=== PATIENT | male | born 1990 | race Caucasian/White ===

== ENCOUNTER 2022-12-01 11:21 | Emergency (ER) | payer MEDICAID ==
[~2022-12-01] VITALS: Ht 172.7 cm; Wt 83.9 kg
[2022-12-01 11:33] VITALS: BP 137/82; PULSE 93; RESP 16; TEMP 97.2; O2SAT 99
[2022-12-01] MEDS ORDERED: DOXY-487 PO (12:10)
[2022-12-01] MEDS ORDERED: [UNRECOGNIZED DRUG - CODE] TP (12:10)
[2022-12-01] MEDS ORDERED: cefTRIAXone 500 MG in LIDOCAINE MPF 1% 1 ML IM ONE (12:10)
[2022-12-01] MEDS ORDERED: PALI6TER PO (12:10)
[2022-12-01] MEDS ORDERED: cefTRIAXone 500 MG VIAL ONE (12:14)
[2022-12-01] MEDS ORDERED: LIDOCAINE MPF 1% 5 ML ONE (12:14)
[2022-12-01 12:33] LABS: APPEARANCE,URINE CLOUDY (CLEAR); BILIRUBIN,URINE NEGATIVE (NEGATIVE); BLOOD, URINE NEGATIVE (NEGATIVE); COLOR,URINE YELLOW (YELLOW); LEUKOCYTE ESTERASE ,URINE NEGATIVE (NEGATIVE); NITRITE, URINE NEGATIVE (NEGATIVE); UGLUCOSE NEGATIVE (NEGATIVE)
== END 2022-12-01 12:18 | disposition home or self-care (01) ==
LOC: MED 11:21
DX: N48.1 Balanitis (principal); F20.9 Schizophrenia, unspecified; Z76.0 Encounter for issue of repeat prescription; Z79.899 Other long term (current) drug therapy; Z11.3 Encounter for screening for infections with a predominantly sexual mode of transmission
CPT/HCPCS: 81003; 87086; 87491; 96372; 99283; J0696; J2001

== ENCOUNTER 2022-12-04 11:57 | Emergency (ER) | payer MEDICAID ==
[~2022-12-04] VITALS: Ht 172.7 cm; Wt 81.6 kg
[~2022-12-04 11:57] MED LIST: DOXY-487 PO; PALI6TER PO; [UNRECOGNIZED DRUG - CODE] TP
[2022-12-04 12:02] VITALS: BP 110/56; PULSE 73; RESP 18; TEMP 97.2; O2SAT 97
[2022-12-04] MEDS ORDERED: NAPR-1704 PO (14:04)
[2022-12-04 15:52] VITALS: BP 112/60; PULSE 73; RESP 18; TEMP 98; O2SAT 98
--- NOTE | 2022-12-04 15:52 | NUR ---
Patient discharged with v/s stable. Written and verbal after care instructions FOR TESTICULAR SELF EXAM given and explained. Patient alert, oriented and verbalized understanding of instructions. Ambulatory with steady gait. All questions addressed prior to discharge. ID band removed. Patient advised to follow up with PMD. Rx of NAPROXEN given. Opportunity to ask questions provided and answered.
--- NOTE | 2022-12-04 17:06 | NUR ---
The patient's care was reviewed and supervised by [facility], RN.
== END 2022-12-04 15:52 | disposition home or self-care (01) ==
LOC: MED 11:57
DX: N50.811 Right testicular pain (principal); F20.9 Schizophrenia, unspecified; Z79.899 Other long term (current) drug therapy
CPT/HCPCS: 76870; 99284

== ENCOUNTER 2022-12-19 10:52 | Emergency (ER) | payer MEDICAID ==
[~2022-12-19] VITALS: Ht 175.3 cm; Wt 81.6 kg
[~2022-12-19 10:52] MED LIST changes: +NAPR-1704 PO
--- NOTE | 2022-12-19 11:01 | NUR ---
CALLED IN LOBBY AND OUTSIDE FOR TRIAGE, NO ANSWER
[2022-12-19 11:13] VITALS: BP 121/86; PULSE 107; RESP 22; TEMP 98; O2SAT 99
[2022-12-19] MEDS ORDERED: NAPR-1703 PO (12:46)
[2022-12-19 12:58] VITALS: BP 121/86; PULSE 107; RESP 22; TEMP 98; O2SAT 99
--- NOTE | 2022-12-19 12:58 | NUR ---
Patient discharged with v/s stable. Written and verbal after care instructions given and explained. Patient alert, oriented and verbalized understanding of instructions. Ambulatory with steady gait. All questions addressed prior to discharge. ID band removed. Patient advised to follow up with PMD. Rx of NAPROXEN (SENT) given. Patient educated on indication of medication including possible reaction and side effects. Opportunity to ask questions provided and answered.
== END 2022-12-19 12:58 | disposition home or self-care (01) ==
LOC: MED 10:52
DX: N43.3 Hydrocele, unspecified (principal); R10.9 Unspecified abdominal pain; Z79.899 Other long term (current) drug therapy
CPT/HCPCS: 81002; 99282

== ENCOUNTER 2022-12-22 09:04 | Emergency (ER) | payer MEDICAID ==
[~2022-12-22 09:04] MED LIST changes: +NAPR-1703 PO
--- NOTE | 2022-12-22 09:20 | NUR ---
CALLED NAME IN LOBBY WITH NO ANSWER INSIDE OR OUTSIDE
--- NOTE | 2022-12-22 09:26 | NUR ---
CALLED NAME IN LOBBY WITH NO ANSWER INSIDE OR OUTSIDE
--- NOTE | 2022-12-22 09:41 | NUR ---
CALLED NAME IN LOBBY WITH NO ANSWER INSIDE OR OUTSIDE
== END 2022-12-22 09:20 | disposition left against medical advice (07) ==
LOC: MED 09:04
DX: Z76.0 Encounter for issue of repeat prescription (principal); Z53.21 Procedure and treatment not carried out due to patient leaving prior to being seen by health care provider

== ENCOUNTER 2022-12-22 13:01 | Emergency (ER) | payer MEDICAID ==
--- NOTE | 2022-12-22 13:16 | NUR ---
called pt in lobby and outside lobby with no answer
--- NOTE | 2022-12-22 13:56 | NUR ---
called pt in lobby and outside lobby with no answer
== END 2022-12-22 13:16 | disposition left against medical advice (07) ==
LOC: MED 13:01
DX: R53.1 Weakness (principal); Z53.21 Procedure and treatment not carried out due to patient leaving prior to being seen by health care provider

== ENCOUNTER 2023-01-18 09:34 | Emergency (ER) | payer MEDICAID, OTHER ==
[~2023-01-18] VITALS: Ht 172.7 cm; Wt 84.4 kg
[~2023-01-18 09:34] MED LIST changes: +ACET-10509 PO; +DOXY-745 PO; +IBUP-1842 PO
[2023-01-18 09:40] VITALS: BP 135/71; PULSE 109; RESP 22; TEMP 98; O2SAT 98
[2023-01-18] MEDS ORDERED: LORazepam 1 MG TAB PO ONE (10:20)
[2023-01-18] MEDS ORDERED: KETOROLAC 30 MG/ML VIAL IM ONE (10:20)
[2023-01-18 10:56] LABS: APPEARANCE,URINE CLEAR (CLEAR); BILIRUBIN,URINE NEGATIVE (NEGATIVE); BLOOD, URINE NEGATIVE (NEGATIVE); COLOR,URINE YELLOW (YELLOW); LEUKOCYTE ESTERASE ,URINE NEGATIVE (NEGATIVE); NITRITE, URINE NEGATIVE (NEGATIVE); PROTEIN,URINE NEGATIVE (NEGATIVE); UGLUCOSE NEGATIVE (NEGATIVE); UROBILINOGEN,URINE 0.2 EU/dL (0.2 - 1)
[2023-01-18 11:11] LABS: AMPHETAMINE, URINE NEGATIVE ng/ml (NEG <=1000); BARBITURATE, URINE NEGATIVE ng/ml (NEG <=200)
[2023-01-18 11:12] LABS: BENZODIAZEPINE, URINE NEGATIVE ng/mL (NEG <=200); CANNABINOID, URINE POSITIVE ng/mL (NEG <=50); COCAINE, URINE NEGATIVE ng/mL (NEG <=300); OPIATE, URINE NEGATIVE ng/mL (NEG <=2000); PHENCYCLIDINE SCREEN,URINE NEGATIVE ng/mL (NEG <=25)
[2023-01-18] MEDS ORDERED: IBUP-2213 PO (11:29)
[2023-01-18] MEDS ORDERED: CEPH-588 PO (11:29)
[2023-01-18] MEDS ORDERED: ATA25 PO (11:29)
[2023-01-18 11:55] VITALS: BP 135/70; PULSE 81; RESP 17; TEMP 98; O2SAT 99
== END 2023-01-18 11:55 | disposition home or self-care (01) ==
LOC: MED 09:34
DX: R00.2 Palpitations (principal); R53.1 Weakness; F41.9 Anxiety disorder, unspecified; Z79.899 Other long term (current) drug therapy; Z20.822 Contact with and (suspected) exposure to COVID-19
CPT/HCPCS: 80305; 81003; 87426; 93005; 96372; 99284; J1885

== ENCOUNTER 2023-01-29 11:21 | Emergency (ER) | payer OTHER ==
[~2023-01-29] VITALS: Ht 172.7 cm; Wt 84.4 kg
[~2023-01-29 11:21] MED LIST changes: +ATA25 PO; +CEPH-588 PO; +IBUP-2213 PO
[2023-01-29 11:29] VITALS: BP 113/67; PULSE 88; RESP 18; TEMP 98.2; O2SAT 95
[2023-01-29] MEDS ORDERED: KETOROLAC 15 MG/ML VIAL IM ONE (14:45)
[2023-01-29] MEDS ORDERED: ACETAMINOPHEN EXTRA STRENGTH 500 MG TAB PO ONE (14:45)
[2023-01-29 15:10] VITALS: BP 115/65; PULSE 85; RESP 19; TEMP 98.1; O2SAT 96
[2023-01-29 19:43] LABS: APPEARANCE,URINE CLEAR (CLEAR); BILIRUBIN,URINE NEGATIVE (NEGATIVE); BLOOD, URINE NEGATIVE (NEGATIVE); COLOR,URINE YELLOW (YELLOW); LEUKOCYTE ESTERASE ,URINE NEGATIVE (NEGATIVE); NITRITE, URINE NEGATIVE (NEGATIVE); PROTEIN,URINE NEGATIVE (NEGATIVE); UGLUCOSE NEGATIVE (NEGATIVE); UROBILINOGEN,URINE 0.2 EU/dL (0.2 - 1)
== END 2023-01-29 15:10 | disposition home or self-care (01) ==
LOC: MED 11:21
DX: N50.811 Right testicular pain (principal); Z79.899 Other long term (current) drug therapy
CPT/HCPCS: 76870; 81003; 87086; 87491; 96372; 99285; J1885; Q0092

== ENCOUNTER 2023-01-31 10:46 | Emergency (ER) | payer OTHER ==
[~2023-01-31] VITALS: Ht 172.7 cm; Wt 81.6 kg
[2023-01-31 11:14] VITALS: BP 138/76; PULSE 111; RESP 18; TEMP 98; O2SAT 98
== END 2023-01-31 12:47 | disposition left against medical advice (07) ==
LOC: MED 10:46
DX: N48.89 Other specified disorders of penis (principal); N50.819 Testicular pain, unspecified; R03.0 Elevated blood-pressure reading, without diagnosis of hypertension; Z79.899 Other long term (current) drug therapy; Z79.2 Long term (current) use of antibiotics; Z79.1 Long term (current) use of non-steroidal anti-inflammatories (NSAID)
CPT/HCPCS: 99281

== ENCOUNTER 2023-02-01 09:03 | Emergency (ER) | payer OTHER ==
[~2023-02-01] VITALS: Ht 172.7 cm; Wt 84.8 kg
[2023-02-01 09:04] VITALS: BP 123/69; PULSE 101; RESP 20; TEMP 98.1; O2SAT 97
[2023-02-01] MEDS ORDERED: KETOROLAC 15 MG/ML VIAL IM ONE (09:50)
[2023-02-01 11:15] VITALS: BP 116/76; PULSE 72; RESP 16; O2SAT 98
== END 2023-02-01 11:09 | disposition home or self-care (01) ==
LOC: MED 09:03
DX: N50.811 Right testicular pain (principal); N50.812 Left testicular pain; Z79.899 Other long term (current) drug therapy
CPT/HCPCS: 99281

== ENCOUNTER 2023-04-26 17:30 | Emergency (ER) | payer OTHER ==
[~2023-04-26] VITALS: Ht 175.3 cm; Wt 90.7 kg
[2023-04-26 18:54] VITALS: BP 124/85; PULSE 78; RESP 18; TEMP 98.7; O2SAT 98
[2023-04-26 21:07] LABS: BASOPHILS # (AUTO) 0.1 K/uL (0.00-0.22); BASOPHILS % (AUTO) 0.9 % (0.0-2.0); EOSINOPHILS # (AUTO) 0.3 K/uL (0-0.4); EOSINOPHILS % (AUTO) 2.9 % (0.0-4.0); HEMATOCRIT 41.1 % (36-52); HEMOGLOBIN 13.8 g/dL (12.0-18.0); LYMPHOCYTES % (AUTO) 27.8 % (20.5-51.1); MEAN CORPUSCULAR HEMOGLOBIN 30 pg (27-31); MEAN CORPUSCULAR HGB CONC 34 g/dL (33-37); MEAN CORPUSCULAR VOLUME 87.9 fL (80-94); MONOCYTES # (AUTO) 0.8 K/uL (0.8-1.0); MONOCYTES % (AUTO) 7.3 % (1.7-9.3); NEUTROPHILS # (AUTO) 6.6 K/uL (1.8-7.7); NEUTROPHILS % (AUTO) 61.1 % (42.2-75.2); PLATELET COUNT (AUTO) 274 K/uL (140-450); RED BLOOD CELL COUNT(AUTO) 4.68 MIL/uL (4.20-6.10); RED CELL DISTRIBUTION WIDTH 13.5 % (11.6-13.7); WHITE BLOOD COUNT (AUTO) 10.7 K/uL (4.8-10.8)
[2023-04-26 21:20] LABS: HIV RAPID SCREEN NON-REACTIVE (NON REACTIV)
[2023-04-26 21:29] LABS: ALBUMIN 3.3 g/dL (3.4-5.0); CALCIUM 8.2 mg/dL (8.5-10.1); CARBON DIOXIDE 28.8 mmol/L (21-32); CREATININE 1.1 mg/dL (0.6-1.3); POTASSIUM 3.8 mmol/L (3.5-5.1); TOTAL BILIRUBIN 0.3 mg/dL (0.0-1.0); TOTAL PROTEIN, SERUM 6.6 g/dL (6.4-8.2)
[2023-04-26 21:58] LABS: APPEARANCE,URINE CLEAR (CLEAR); BILIRUBIN,URINE NEGATIVE (NEGATIVE); BLOOD, URINE NEGATIVE (NEGATIVE); COLOR,URINE YELLOW (YELLOW); LEUKOCYTE ESTERASE ,URINE NEGATIVE (NEGATIVE); NITRITE, URINE NEGATIVE (NEGATIVE); PROTEIN,URINE NEGATIVE (NEGATIVE); UGLUCOSE NEGATIVE (NEGATIVE); UROBILINOGEN,URINE 0.2 EU/dL (0.2 - 1)
[2023-04-30 09:07] LABS: HEPATITIS C AB Non Reactive (Non Reactive)
== END 2023-04-26 22:36 | disposition left against medical advice (07) ==
LOC: MED 17:30
DX: R55 Syncope and collapse (principal); F15.90 Other stimulant use, unspecified, uncomplicated; F20.9 Schizophrenia, unspecified; Z79.899 Other long term (current) drug therapy
CPT/HCPCS: 36415; 80053; 81003; 83690; 85025; 86804; 87491; 87522; 93005; 99284

== ENCOUNTER 2023-04-27 10:19 | Emergency (ER) | payer OTHER | END 2023-04-27 10:40 | disposition left against medical advice (07) | LOC: MED 10:19 | DX: R42 Dizziness and giddiness (principal); Z53.21 Procedure and treatment not carried out due to patient leaving prior to being seen by health care provider ==

== ENCOUNTER 2023-05-11 13:28 | Emergency (ER) | payer OTHER ==
[~2023-05-11] VITALS: Ht 175.3 cm; Wt 90.7 kg
[2023-05-11 14:01] VITALS: BP 136/84; PULSE 108; RESP 15; TEMP 98.3; O2SAT 98
[2023-05-11 15:44] LABS: BASOPHILS # (AUTO) 0.1 K/uL (0.00-0.22); BASOPHILS % (AUTO) 0.6 % (0.0-2.0); EOSINOPHILS # (AUTO) 0.3 K/uL (0-0.4); EOSINOPHILS % (AUTO) 2.5 % (0.0-4.0); HEMATOCRIT 42.8 % (36-52); HEMOGLOBIN 14.6 g/dL (12.0-18.0); LYMPHOCYTES # (AUTO) 3.4 K/uL (2.0-11.5); LYMPHOCYTES % (AUTO) 30.7 % (20.5-51.1); MEAN CORPUSCULAR HEMOGLOBIN 30 pg (27-31); MEAN CORPUSCULAR HGB CONC 34 g/dL (33-37); MEAN CORPUSCULAR VOLUME 88.5 fL (80-94); MONOCYTES # (AUTO) 0.8 K/uL (0.8-1.0); MONOCYTES % (AUTO) 7.5 % (1.7-9.3); NEUTROPHILS # (AUTO) 6.5 K/uL (1.8-7.7); NEUTROPHILS % (AUTO) 58.7 % (42.2-75.2); PLATELET COUNT (AUTO) 238 K/uL (140-450); RED BLOOD CELL COUNT(AUTO) 4.84 MIL/uL (4.20-6.10); RED CELL DISTRIBUTION WIDTH 13.7 % (11.6-13.7); WHITE BLOOD COUNT (AUTO) 11.1 K/uL (4.8-10.8)
[2023-05-11 16:10] LABS: ANION GAP 12.4 (8-16); CARBON DIOXIDE 26.8 mmol/L (21-32); POTASSIUM 4.2 mmol/L (3.5-5.1)
[2023-05-11 16:14] LABS: ALBUMIN 3.5 g/dL (3.4-5.0); BILIRUBIN,DIRECT 0.1 mg/dL (0.0-0.3); TOTAL BILIRUBIN 0.2 mg/dL (0.0-1.0); TOTAL PROTEIN, SERUM 6.8 g/dL (6.4-8.2)
[2023-05-11 16:37] LABS: APPEARANCE,URINE CLEAR (CLEAR); BILIRUBIN,URINE NEGATIVE (NEGATIVE); BLOOD, URINE NEGATIVE (NEGATIVE); COLOR,URINE YELLOW (YELLOW); LEUKOCYTE ESTERASE ,URINE NEGATIVE (NEGATIVE); NITRITE, URINE NEGATIVE (NEGATIVE); PROTEIN,URINE NEGATIVE (NEGATIVE); UGLUCOSE NEGATIVE (NEGATIVE); UROBILINOGEN,URINE 0.2 EU/dL (0.2 - 1)
[2023-05-11 17:13] VITALS: TEMP 97.8
[2023-05-11 17:15] LABS: AMPHETAMINE, URINE NEGATIVE ng/ml (NEG <=1000); BARBITURATE, URINE NEGATIVE ng/ml (NEG <=200); BENZODIAZEPINE, URINE NEGATIVE ng/mL (NEG <=200); CANNABINOID, URINE POSITIVE ng/mL (NEG <=50); COCAINE, URINE NEGATIVE ng/mL (NEG <=300); OPIATE, URINE NEGATIVE ng/mL (NEG <=2000); PHENCYCLIDINE SCREEN,URINE NEGATIVE ng/mL (NEG <=25)
[2023-05-11 20:00] VITALS: BP 123/77; PULSE 88; RESP 16
[2023-05-11 20:28] VITALS: O2SAT 99
[2023-05-11] MEDS: risperiDONE 1 MG TAB PO SCH (21:04)
[2023-05-11 22:53] VITALS: O2SAT 99
[2023-05-12 01:31] VITALS: O2SAT 99
[2023-05-12 04:14] VITALS: O2SAT 99
[2023-05-12 07:46] VITALS: O2SAT 99
[2023-05-12] MEDS: risperiDONE 1 MG TAB PO SCH (10:49)
[2023-05-12 14:30] VITALS: O2SAT 99
[2023-05-12] MEDS ORDERED: OLANZapine 10 MG VIAL IM ONE (14:30)
[2023-05-12] MEDS ORDERED: WATER STERILE 10 ML MC ONE (14:58)
== END 2023-05-12 18:00 ==
LOC: MED 13:28
DX: R45.851 Suicidal ideations (principal); R45.850 Homicidal ideations; F20.9 Schizophrenia, unspecified; Z20.822 Contact with and (suspected) exposure to COVID-19; F29 Unspecified psychosis not due to a substance or known physiological condition; Z91.148 Patient's other noncompliance with medication regimen for other reason; F17.200 Nicotine dependence, unspecified, uncomplicated; F15.90 Other stimulant use, unspecified, uncomplicated; Z79.899 Other long term (current) drug therapy; Z79.1 Long term (current) use of non-steroidal anti-inflammatories (NSAID); Z79.2 Long term (current) use of antibiotics
CPT/HCPCS: 36415; 80048; 80076; 80305; 81003; 85025; 87426; 96372; 99285; J3490

== ENCOUNTER 2023-05-22 17:22 | Emergency (ER) | payer OTHER ==
[~2023-05-22] VITALS: Ht 172.7 cm; Wt 90.7 kg
[2023-05-22 17:38] VITALS: BP 111/81; PULSE 110; RESP 20; TEMP 98.8; O2SAT 98
[2023-05-22 21:10] VITALS: BP 111/81; PULSE 110; RESP 20; TEMP 98.8; O2SAT 98
== END 2023-05-22 21:10 | disposition left against medical advice (07) ==
LOC: MED 17:22
DX: N48.89 Other specified disorders of penis (principal); Z53.21 Procedure and treatment not carried out due to patient leaving prior to being seen by health care provider
CPT/HCPCS: 99281

== ENCOUNTER 2023-06-06 10:00 | Emergency (ER) | payer OTHER ==
[~2023-06-06] VITALS: Ht 167.6 cm; Wt 81.6 kg
[2023-06-06 10:15] VITALS: BP 127/97; PULSE 88; TEMP 98; O2SAT 97
[2023-06-06] MEDS ORDERED: IBUP-2213 PO (12:00)
[2023-06-06 12:06] VITALS: BP 127/97; PULSE 88; TEMP 98; O2SAT 97
== END 2023-06-06 12:00 | disposition home or self-care (01) ==
LOC: MED 10:00
DX: N50.819 Testicular pain, unspecified (principal); Z79.899 Other long term (current) drug therapy
CPT/HCPCS: 81002; 99282

== ENCOUNTER 2023-09-27 17:58 | Emergency (ER) | payer OTHER ==
[~2023-09-27] VITALS: Ht 175.3 cm; Wt 83.9 kg
[2023-09-27 18:09] VITALS: BP 140/95; PULSE 118; RESP 18; TEMP 98.6; O2SAT 98
== END 2023-09-27 19:03 | disposition home or self-care (01) ==
LOC: MED 17:58
DX: F41.9 Anxiety disorder, unspecified (principal); Z00.8 Encounter for other general examination; Z79.899 Other long term (current) drug therapy
CPT/HCPCS: 99281